=== PATIENT | female | born 1995 | race Hispanic/Latino ===

== ENCOUNTER 2025-07-11 23:54 | Emergency (ER) | payer SELFPAY ==
[~2025-07-11] VITALS: Ht 154.9 cm; Wt 56.7 kg
[2025-07-12] MEDS: 0.9%NACL 1000ML 1,000 ML IV ONE (00:19)
[2025-07-12 00:22] LABS: APPEARANCE,URINE CLEAR (CLEAR); GLUCOSE, URINE (UA) NEGATIVE (NEGATIVE); LEUKOCYTE ESTERASE ,URINE 25 Leu/uL (NEGATIVE); NITRATE,URINE NEGATIVE (NEGATIVE); OCCULT BLOOD,URINE NEGATIVE (NEGATIVE)
[2025-07-12 00:30] LABS: AMPHET/METH SCREEN,URINE NEGATIVE (NEGATIVE); BARBITURATE SCREEN, URINE NEGATIVE (NEGATIVE); CANNABINOID SCREEN,URINE POSITIVE (NEGATIVE); COCAINE SCREEN,URINE NEGATIVE (NEGATIVE)
[2025-07-12 00:33] LABS: ADD UA MICROSCOPIC YES
[2025-07-12 00:34] LABS: SQUAMOUS EPITHELIAL CELL,UR MANY /HPF (0-2)
[2025-07-12 00:39] LABS: IMMATURE GRANULOCYTE ABSOLUTE 0.01 K/uL (0-1); NUCLEATED RED BLOOD CELLS 0.0 % (0.0-0.19); PLATELET COUNT (AUTO) 267 K/uL (130-400); RED BLOOD CELL COUNT(AUTO) 4.72 MIL/uL (4.00-5.50); RED CELL DISTRIBUTION WIDTH 12.3 % (11.0-15.5); WHITE BLOOD COUNT (AUTO) 5.8 K/uL (4.8-10.8)
[2025-07-12 00:48] LABS: CREATININE 0.4 mg/dL (0.5-1.0); GLOMERULAR FILTR. RATE CALC 135 mL/min (>90); GLUCOSE,RANDOM 91 mg/dL (70-105); SODIUM SERUM 144 mmol/L (136-145); UREA NITROGEN, BLOOD 7 mg/dL (7-18)
[2025-07-12 00:52] LABS: ALCOHOL, BLOOD 80 mg/dL (0-10)
--- NOTE | 2025-07-12 01:04 | NUR ---
[facility] CALLED WITH MEDICAL CLEARANCE. PER [facility], CALL [facility] FOR SCREENING.
--- NOTE | 2025-07-12 01:06 | NUR ---
[facility]ISIS LINE CALLED. PENDING SCREENER TO COME AND EVALUATE PATIENT
--- NOTE | 2025-07-12 01:16 | ERN ---
ED Note History of Present Illness Stated Complaint: PSYCH/MED CLEARANCE Chief Complaint: Psych Evaluation Time Seen by MD: 00:06 Time Seen by Midlevel: 00:06 Dictation: The patient is a 30-year-old female with a history of bipolar and depression who presents to the emergency department for medical clearance. Patient presented to [facility] with suicidal ideations. Patient reports plan to hang herself. Reports that she used her belt today to put it around her neck but reports that it was not tight enough. Patient denies any homicidal ideations. Denies any hallucinations. Reports that she drinks alcohol and had two drinks today. Reports that sometimes she drinks daily and then sometimes she will drink monthly and weekends. Denies any drug use. Patient currently denies any pain but reports some nausea. No other complaints reported. Allergies: Coded Allergies: No Known Drug Allergies (Unverified Allergy, Unknown, 07/12/25) Past Medical History Past Medical History: No Pertinent History Surgical History: None RN Note Reviewed/Agreed w/PFSH: Yes Review of System Dictation Constitutional: Negative for fever,chills, and weight loss Eyes: Negative for injury, pain,redness, and discharge ENT: Negative for injury,pain or swelling Cardiovascular: Negative for chest pain, palpitations, and edema Respiratory: Negative for shortness of breath, cough, and wheezing, Abdomen/GI: Negative for abdominal pain, vomiting, diarrhea, and constipation positive for nausea Back: Negative for injury and pain : Negative for injury, bleeding and discharge MS/Extremity: Negative for injury and deformity Skin: Negative for rash, and discoloration Neuro: Negative for headache, weakness, numbness, tingling, and seizure Psych: Negative for homicidal ideation, and hallucinations positive for suicidal ideations Initial Vital Sign VS Vital Signs Date Time Temp Pulse Resp B/P (MAP) Pulse Ox O2 Delivery O2 Flow Rate FiO2 07/11/25 23:59 98.1 67 18 125/65 98 Room Air 0 07/12/25 00:07 21 Physical Exam Dictation Vital Signs reviewed General Appearance: Alert, oriented x 3, no acute distress, well developed, nourished. Head and Face: non-traumatic. Eyes: PERRL, pink conjunctivas, eyelid no trauma, anterior chamber with arcus senilis. Ears: Pinnas intact and no signs of trauma or erythema ear canals clear and no discharge TM no erythema Nose: No discharge, no bleeding. Oropharynx: Mouth normal, tongue pink. pharynx clear,no erythema, tonsils no exudates, no abscesses noted, mucous membrane moist Neck: Supple, non-tender, no thyromegaly, no masses, no JVD, no bruits no tenderness to neck, no wounds to neck or bruising. Breast:Deferred Chest:No tenderness, no crepitus, no paradoxical movement, no retractions Lungs:Clear, well-ventilated, symmetric, no rales, no wheezing, no rhonchi, no stridor, good breath sounds bilaterally Heart: Regular rate, regular rhythm, no murmur, no gallops Vascular: no peripheral edema, Abdomen: Soft, positive bowel sounds, nondistended, no guarding, nontender, no rebound, no masses no hepatomegaly, no splenomegaly, no Aguirre's sign, no hernias. Rectal: Deferred Genital: Deferred Neurological: Normal speech, motor function intact, sensory function intact Musculoskeletal: Neck nontender, full range of motion, back nontender, full range of motion, Extremities: nontender, full range of motion Skin: Color pink, dry, no turgor, no rash, no lacerations, no abrasions, no contusions. Lymphatic: Deferred Results (Laboratory/Radiology) Laboratory/Radiology Laboratory Tests Test 07/12/25 00:00 07/12/25 00:26 Urine Color LIGHT-YELLOW (YELLOW) Urine Appearance CLEAR (CLEAR) Urine pH 5.5 (5.0-8.0) Urine Specific Fraser 1.023 (1.001-1.031) Urine Protein NEGATIVE mg/dL (NEGATIVE) Urine Glucose (UA) NEGATIVE mg/dL (NEGATIVE) Urine Ketones NEGATIVE mg/dL (NEGATIVE) Urine Occult Blood NEGATIVE (NEGATIVE) Urine Nitrate NEGATIVE (NEGATIVE) Urine Bilirubin NEGATIVE mg/dL (NEGATIVE) Urine Urobilinogen 0.2 mg/dL (0.2-1.0) Urine Leukocyte Esterase 25 Naomy/uL (NEGATIVE) H Urine RBC 0-1 /HPF (0-1) Urine WBC 2-5 /HPF (0-1) H Urine Squamous Epithelial Cells MANY /HPF (0-2) Urine Bacteria RARE /HPF (None Seen) Urine Opiates Screen NEGATIVE (NEGATIVE) Urine Barbiturates Screen NEGATIVE (NEGATIVE) Urine Phencyclidine Screen NEGATIVE (NEGATIVE) Urine Amphetamines Screen NEGATIVE (NEGATIVE) Urine Benzodiazepines Screen NEGATIVE (NEGATIVE) Urine Cocaine Screen NEGATIVE (NEGATIVE) Urine Marijuana (THC) Screen POSITIVE (NEGATIVE) H White Blood Count 5.8 K/uL (4.8-10.8) Red Blood Count 4.72 MIL/uL (4.00-5.50) Hemoglobin 14.3 g/dL (12.0-16.0) Hematocrit 42.7 % (36-48) Mean Corpuscular Volume 90.5 fL (79-99) Mean Corpuscular Hemoglobin 30.3 pg (27.0-33.0) Mean Corpuscular Hemoglobin Concent 33.5 g/dL (32.0-36.0) Red Cell Distribution Width 12.3 % (11.0-15.5) Platelet Count 267 K/uL (130-400) Mean Platelet Volume 10.2 fL (7.5-10.5) Immature Granulocyte % (Auto) 0.2 % (0-1) Neutrophils (%) (Auto) 50.7 % (40.0-77.0) Lymphocytes (%) (Auto) 36.8 % (21.0-51.0) Monocytes (%) (Auto) 9.6 % (3.0-13.0) Eosinophils (%) (Auto) 2.4 % (0.0-8.0) Basophils (%) (Auto) 0.3 % (0.0-5.0) Neutrophils # (Auto) 3.0 K/uL (1.8-7.7) Lymphocytes # (Auto) 2.1 K/uL (1.0-4.8) Monocytes # (Auto) 0.6 K/uL (0.1-1.0) Eosinophils # (Auto) 0.14 K/uL (0.00-0.70) Basophils # (Auto) 0.02 K/uL (0.00-0.20) Absolute Immature Granulocyte (auto 0.01 K/uL (0-1) Nucleated Red Blood Cells 0.0 % (0.0-0.19) Sodium Level 144 mmol/L (136-145) Potassium Level 3.7 mmol/L (3.5-5.1) Chloride Level 107 mmol/L (101-111) Carbon Dioxide Level 25 mmol/L (21-32) Blood Urea Nitrogen 7 mg/dL (7-18) Creatinine 0.4 mg/dL (0.5-1.0) L Glomerular Filtration Rate Calc 135 mL/min (>90) Random Glucose 91 mg/dL (70-105) Total Calcium 8.1 mg/dL (8.5-10.1) L Serum Test, Qualitative NEGATIVE (NEGATIVE) Salicylates Level < 2.8 mg/dL (2.8-20.0) L Acetaminophen Level < 1 mcg/mL (10-30) L Serum Alcohol 80 mg/dL (0-10) H Labs Reviewed?: Yes ED Course ED Course Orders Procedure Category Date Status Time Cbc With Differential LAB 07/12/25 Complete 00:08 Basic Metabolic Panel LAB 07/12/25 Complete 00:08 Urinalysis Profile LAB 07/12/25 Complete 00:08 Drug Screen Urine LAB 07/12/25 Complete 00:08 Acetaminophen LAB 07/12/25 Complete 00:08 Salicylate LAB 07/12/25 Complete 00:08 Alcohol, Blood LAB 07/12/25 Complete 00:08 Suicide Precautions CPOE 07/12/25 Transmitted 00:10 Testing, LAB 07/12/25 Complete Serum Hcg 00:10 0.9%Nacl 1000ml (Ns PHA 07/12/25 Complete 1000ml) 00:30 Ondansetron 4mg Inj PHA 07/12/25 Complete (Zofran 4mg Inj) 00:30 Diazepam 5 Mg/Ml 2 Ml PHA 07/12/25 Complete Syg (Valium 5 Mg/M 12:15 Regular DIET 07/12/25 Transmitted Dinner Diphenhydramine Hcl PHA 07/12/25 In Process (Benadryl Inj) 17:00 Current Medications Medications (Trade) Dose Ordered Sig/Ren Route PRN Reason Start Time Stop Time Status Last Admin Dose Admin Diazepam (VALium 5 MG/ML 2 ML SYG) 5 mg ONCE STAT IVP 07/12/25 12:15 07/12/25 12:17 DC 07/12/25 12:46 Diphenhydramine HCl (BENAdryl INJ) 25 mg ONCE IV 07/12/25 17:00 07/12/25 21:00 07/12/25 18:07 Ondansetron HCl (zoFRAN 4MG INJ) 4 mg ONCE ONCE IVP 07/12/25 00:30 07/12/25 00:31 DC 07/12/25 00:19 Sodium Chloride 1,000 ml @ 0 mls/hr ONCE ONCE IV 07/12/25 00:30 07/12/25 00:31 DC 07/12/25 00:19 Vital Signs Date Time Temp Pulse Resp B/P (MAP) Pulse Ox O2 Delivery O2 Flow Rate FiO2 07/12/25 16:00 99.0 108 20 140/84 97 Room Air* 0 07/12/25 11:37 98.4 92 24 133/88 97 Room Air* 0 07/12/25 07:36 99.0 114 16 134/84 97 Room Air* 0 07/12/25 04:28 98.1 72 16 126/68 99 Room Air* 0 07/12/25 00:07 98.1 67 16 125/65 98 Room Air* 0 07/11/25 23:59 98.1 67 18 125/65 98 Room Air 0 Medical Decision Making MDM The patient is a 30-year-old female with a history of bipolar and depression who presents to the emergency department for medical clearance. Patient presented to [facility] with suicidal ideations. Patient reports plan to hang herself. Reports that she used her belt today to put it around her neck but reports that it was not tight enough. Patient denies any homicidal ideations. Denies any hallucinations. Reports that she drinks alcohol and had two drinks today. Reports that sometimes she drinks daily and then sometimes she will drink monthly and weekends. Denies any drug use. Patient currently denies any pain but reports some nausea. No other complaints reported. Differential diagnosis: Suicidal ideations, alcohol intoxication, dehydration Laboratory analysis showed patient's blood alcohol level was 80, she was also positive for THC. The rest of her labs were normal. Patient is medically clear to go to an acute rehab facility. We are working on placement now. She was evaluated by the [facility] contact center representative who does recommend admission. DX & DISP Disposition: Transfer Departure Impression: Primary Impression: Suicidal ideation Additional Impression: Alcohol abuse Condition: Stable Referrals: SELF,REFERRAL (PCP) GABE GOODSON Jul 12, 2025 01:16 THOMAS LOPEZ MD Jul 12, 2025 04:27
--- NOTE | 2025-07-12 02:36 | NUR ---
KEVIN ARREOLA SCREENER HERE TO EVALUATE PATIENT
--- NOTE | 2025-07-12 03:56 | NUR ---
PATIENT SCREENED BY KEVIN ARREOLA, PATIENT NEEDS PLACEMENT FOR DETOX/SI. [facility] RM CALLED, AT [facility], CAN PLACE HER ON A WAITING LIST. REQUESTED KEVIN TO SEND SCREENING. KEVIN ARREOLA AWARE AND WILL CONTINUE TO LOOK FOR PLACEMENT.
--- NOTE | 2025-07-12 07:00 | NUR ---
SITTER: REFER TO 1:1 SITTING NOTES
--- NOTE | 2025-07-12 11:12 | NUR ---
[facility] FOLLOW UP: BAILEY WHO ANSWERED MY CALL STATED SHE WOULD PUT THE PAGE OUT FOR ONE OF THE SCREENERS TO CALL BACK TO FOLLOW UP ON POSSIBLE PLACEMENT FOR THIS PT.
--- NOTE | 2025-07-12 11:30 | NUR ---
[facility] SCREENER NOTE: PER HONEY FROM [facility], PT DOES NOT MEET ADMISSION CRITERIA AND THEY WILL MAKE CONTACT W/PT IN 24HRS. WHEN ASKED IF PT CAN BE RELEASED OR IF SHE NEEDED TO STAY IN THE ED FOR A TOTAL OF 24RHS, SHE SAID SHE COULD NOT GIVE ANY RECOMMENDATIONS. JUST THAT THEY WILL FOLLOW UP WITH HER IN 24HRS.
--- NOTE | 2025-07-12 12:10 | NUR ---
DR HURLEY INFORMED OF WHAT [facility] INFORMED ME OF.
--- NOTE | 2025-07-12 12:16 | NUR ---
[facility] NOTE: [facility] CALLED AND MY CONCERN WAS GIVEN POST MD REASSESSMENT. [facility] WILL HAVE THE SCREENER CALL ME AGAIN. PT VERBALIZED TO DR HURLEY THAT SHE IS STILL AT RISK FOR SUICIDE ATTEMPT BY HANGING.
--- NOTE | 2025-07-12 16:45 | NUR ---
PT INFORMED ME OF ITCHY SKIN ON LEFT ARM,LEFT SIDE OF NECK AND LEFT LEG. SKIN IS RED, NO HIVES,NO BLISTERS.RESPIRASIN IS UNLABORED AND EVEN. Addendum: 07/12/25 at [address] HURLEY MADE AWARE. FIFI BURTON.
--- NOTE | 2025-07-12 18:07 | NUR ---
Benadryl administered as ordered.
--- NOTE | 2025-07-12 18:40 | NUR ---
[facility] FOLLOW UP: JENNY TO PAGE SCREENER SO I MAY FOLLOW UP W/WHAT IS TO FOLLOW FOR PT CARE. HONEY DID NOT RETURN CALL SHE MENTIONED AFTER SHE WAS SUPPOSED TO HAVE SPOKEN TO HER DIRECTOR
--- NOTE | 2025-07-12 19:53 | NUR ---
HO [facility] SCREENROSEMARIE [facility]VER CALLS AND ADVISES PATIENT IS TO BE FOLLOWED UP WITH TOMORROW. ADVISED IF ED PHYSICIAN RECOMENDS PATIENT NEEDS TO BE TRANSFERRED TO INPATIENT PSYCHIATRIC FACILITY, WE WOULD NEED TO SEEK PLACEMENT FOR PATIENT
[2025-07-12] MEDS: SIMETHICONE 80 MG TAB.CHEW PO ONE (21:40)
--- NOTE | 2025-07-13 00:23 | NUR ---
SPOKE TO [facility]. INFORMATION FAXED OVER.
--- NOTE | 2025-07-13 01:00 | NUR ---
SPOKE TO KAT AT [facility]. [facility] NEEDS APPROVAL FROM DETOX DEPT AT [facility] IN ORDER TO TAKE THE PATIENT. CONTACT WITH DEXOT DEPT AT [facility] WILL NOT OCCUR UNTIL 8 AM.
--- NOTE | 2025-07-13 08:32 | NUR ---
PER HONEY FROM [facility], SHE STATES THAT THE SCREENER WILL FOLLOW UP WITH HER AND THE REFERRAL WAS SENT TO THE DETOX DEPARTMENT. AFTER REFERRAL IS RECIEVED BY DETOX PLACEMENT, SHE WILL GET A FOLLOW UP APPT FOR HER TO ATTEND.
--- NOTE | 2025-07-13 09:50 | NUR ---
PT TAKEN TO SHOWER WITH FEMALE SITTER.
--- NOTE | 2025-07-13 10:38 | NUR ---
PT RETURNED WITH SITTER AFTER TAKING A SHOWER.
[2025-07-13 11:09] VITALS: TEMP 97.9
--- NOTE | 2025-07-13 14:35 | NUR ---
SPOKE TO [facility] HOTLINE WORKER, HE WILL REACH OUT TO SCREENER TO CALL BACK WITH AN UPDATE FOR PT.
--- NOTE | 2025-07-13 14:44 | NUR ---
HONEY FROM [facility] CALLED BACK AND SAID THE SCREENER WILL BE COMING BY LATER TODAY. NO ETA PROVIDED ON SCREENER.
--- NOTE | 2025-07-13 15:03 | NUR ---
[facility] SCREENER SERGEY AT BEDSIDE AT THIS TIME
--- NOTE | 2025-07-13 15:31 | NUR ---
PER YASMEEN WITH [facility], PT WAS PROVIDED INFORMATION FOR DETOX [facility] CLEAR FOR DISCHARGE. MADE MEI MATHEWS AWARE.
[2025-07-13 16:25] VITALS: BP 120/66; PULSE 77; RESP 20; O2SAT 99
--- NOTE | 2025-07-13 16:26 | NUR ---
PT DISCHARGED FROM FACILITY. PT A&O X4 AND TOLD TO FOLLOW UP OUTPATIENT WITH [facility]. PT AGREED AND UNDERSTOOD.
== END 2025-07-13 16:27 | disposition home or self-care (01) ==
LOC: EDH 23:54
DX: R45.851 Suicidal ideations (principal); F10.10 Alcohol abuse, uncomplicated; Y90.9 Presence of alcohol in blood, level not specified
CPT/HCPCS: 99285; 80048; 80305; 84703; 85025; 36415; 81001; 96374; 96375 ×2; 96376; G0481; J1200; J7030; J3360 ×2; J2405; J0696